=== PATIENT | male | born 1995 | race Caucasian/White ===

== ENCOUNTER 2020-02-09 18:28 | Emergency (ER) | payer OTHER ==
[~2020-02-09] VITALS: Ht 182.9 cm; Wt 83.4 kg
[2020-02-09] MEDS ORDERED: ALBUTEROL 90 MCG/ACT 8GM HFA INHALER INH ONE (19:00)
[2020-02-09 19:36] LABS: INFLUENZA A AMPLIFICATION NEGATIVE (NEGATIVE); INFLUENZA B AMPLIFICATION NEGATIVE (NEGATIVE)
--- NOTE | 2020-02-09 20:09 | REP ---
HISTORY: Cough and dyspnea. COMPARISON: None. FINDINGS: The superior mediastinal structures are midline. The cardiac silhouette is unremarkable in size, shape and position. The diaphragmatic surfaces of the lungs are regular and the costophrenic angles are clear. The pulmonary pitts are clear. The imaged osseous structures are intact. IMPRESSION: There is no acute cardiopulmonary disease. Electronically Signed by Simon Vuong DO 02/10/2020 09:26 A
[2020-02-09 21:22] VITALS: BP 141/73
[2020-02-09] MEDS ORDERED: AZIT-12 PO (21:43)
[2020-02-09] MEDS ORDERED: VENTAER INH (21:44)
[2020-02-09] MEDS ORDERED: AZITHROMYCIN 250 MG TAB PO ONE (21:45)
== END 2020-02-09 21:57 | disposition home or self-care (01) ==
LOC: M ED 18:28
DX: J18.9 Pneumonia, unspecified organism (principal); F17.200 Nicotine dependence, unspecified, uncomplicated